=== PATIENT | female | born 1945 | race Hispanic/Latino ===

== ENCOUNTER 2021-04-03 16:29 | Emergency (ER) | payer OTHER, SELFPAY ==
[2021-04-03 16:35] VITALS: BP 112/61; PULSE 90; RESP 18; TEMP 37; O2SAT 99
--- NOTE | 2021-04-03 17:39 | DI.RAD.S_ITS ---
PROCEDURE: XR ELBOW LT MIN 3V INDICATIONS: fall onto left elbow w/ shoulder and elbow pain TECHNIQUE: 3 views of the elbow were acquired. COMPARISON: [facility], CR, XR SHOULDER LT MIN 2V, 04/03/2021, 17:40. FINDINGS: Bones: No fractures or dislocations. No suspicious bony lesions. Degenerative changes are seen, including a prominent olecranon enthesophyte. Soft tissues: No elbow joint effusion. No suspicious soft tissue calcifications. IMPRESSION: No displaced fractures are seen on these plain films. If there is focal tenderness, or other clinical concern for a fracture not seen on these images in this patient with a given history of trauma, please consider a dedicated CT or a short-term followup plain film series (in 1-2 weeks) for further evaluation. Dictated by: Eric Fischer M.D. on 04/03/2021 at 17:11 Approved by: Eric Fischer M.D. on 04/03/2021 at 17:12
--- NOTE | 2021-04-03 17:39 | DI.RAD.S_ITS ---
PROCEDURE: XR SHOULDER LT MIN 2V INDICATIONS: fall onto left elbow w/ shoulder and elbow pain TECHNIQUE: 3 views of the shoulder were acquired. COMPARISON: [facility], CR, XR ELBOW LT MIN 3V, 04/03/2021, 17:40. FINDINGS: Bones: No fractures or dislocations. No suspicious bony lesions. Visualized ribs appear intact. Degenerative changes are seen, including mild subacromial spurring. Soft tissues: No suspicious soft tissue calcifications. The visualized lung demonstrates an unremarkable appearance. IMPRESSION: Degenerative changes, without an acute abnormality identified. If there is point tenderness (or other clinical suspicion for a fracture not seen on these images) please consider a dedicated CT for further evaluation. Dictated by: Eric Fischer M.D. on 04/03/2021 at 17:10 Approved by: Eric Fischer M.D. on 04/03/2021 at 17:11
--- NOTE | 2021-04-03 21:27 | ED.UPPEXIN ---
HPI - Extremity Injury (Upper) General Chief Complaint: Extremity Injury, Upper Stated Complaint: FALL LEFT ELBOW INJURY Time Seen by Provider: 04/03/21 21:05 Source: patient Mode of arrival: Ambulatory Limitations: no limitations History of Present Illness HPI narrative: Patient is a 76-year-old female history of diabetes presenting with left shoulder and elbow pain after ground level fall. Something well using a walker and fell onto her elbow. She did not hit her head she tries very hard not to do that. She has no numbness tingling or weakness in her fingertips. complaint: injury to: left, shoulder and elbow Onset (ago): hour(s) Related Data Allergies Allergy/AdvReac Type Severity Reaction Status Date / Time No Known Drug Allergies Allergy Verified 04/03/21 16:40 Review of Systems Review of Systems Narrative: GENERAL: Denies chills,fever HEENT: Denies throat pain RESPIRATORY: Denies dyspnea, cough, wheezing CARDIOVASCULAR: Denies chest pain, palpitations GASTROINTESTINAL: Denies nausea, vomiting MUSCULOSKELETAL: See HPI SKIN: No rash, no laceration, no pruritus NEUROLOGIC: Denies weakness, dizziness, headache, numbness 8 point review of systems is negative except for those stated above and HPI Patient History Medical History (Updated 04/03/21 @ 21:34 by Autumn Cason DO) Diabetes Social History Smoking Status: Never smoker Smoking Status: Never smoker alcohol intake frequency: 0-2 drinks per day Substance Use Type: does not use Exam Initial Vital Signs Initial Vital Signs: Vital Signs Temperature 98.6 F 04/03/21 16:35 Pulse Rate 90 04/03/21 16:35 Respiratory Rate 18 04/03/21 16:35 Blood Pressure 112/61 04/03/21 16:35 Pulse Oximetry 99 04/03/21 16:35 GENERAL: Alert well-appearing 76-year-old female CARDIOVASCULAR: peripheral pulses in tact, cap refill <2 sec RESPIRATORY: No respiratory distress, speaks in full sentences without difficulty EXTREMITIES: Normal range of motion, no clubbing or edema. Neurovascularly intact Left shoulder tender no clavicle step-off elbow contusion able to flex and extend at elbow. No wrist deformity strong distal radial pulse intact NEUROLOGICAL: Cranial nerves II through XII grossly intact. Normal gait and speech. SKIN: Contusion noted left elbow no laceration Course Orders Ordered: ED Orders 04/03/21 17:39 XR elbow LT min 3V Stat XR shoulder LT min 2V Stat Vital Signs Vital signs: Vital Signs - 8 hr 04/03/21 16:35 Temperature 98.6 F Pulse Rate 90 Respiratory Rate 18 Blood Pressure 112/61 Pulse Oximetry 99 MDM - Extremity Injury (Upper) Imaging Data Extremity x-ray #1: Radiologist's Impression: PROCEDURE: XR ELBOW LT MIN 3V INDICATIONS: fall onto left elbow w/ shoulder and elbow pain TECHNIQUE: 3 views of the elbow were acquired. COMPARISON: [facility], XR SHOULDER LT MIN 2V, 04/03/2021, 17:40. FINDINGS: Bones: No fractures or dislocations. No suspicious bony lesions. Degenerative changes are seen, including a prominent olecranon enthesophyte. Soft tissues: No elbow joint effusion. No suspicious soft tissue calcifications. IMPRESSION: No displaced fractures are seen on these plain films. If there is focal tenderness, or other clinical concern for a fracture not seen on these images in this patient with a given history of trauma, please consider a dedicated CT or a short-term followup plain film series (in 1-2 weeks) for further evaluation. Dictated by: Eric Fischer M.D. on 04/03/2021 at 17:11 Extremity x-ray #2: Radiologist's Impression: PROCEDURE: XR SHOULDER LT MIN 2V INDICATIONS: fall onto left elbow w/ shoulder and elbow pain TECHNIQUE: 3 views of the shoulder were acquired. COMPARISON: [facility], XR ELBOW LT MIN 3V, 04/03/2021, 17:40. FINDINGS: Bones: No fractures or dislocations. No suspicious bony lesions. Visualized ribs appear intact. Degenerative changes are seen, including mild subacromial spurring. Soft tissues: No suspicious soft tissue calcifications. The visualized lung demonstrates an unremarkable appearance. IMPRESSION: Degenerative changes, without an acute abnormality identified. If there is point tenderness (or other clinical suspicion for a fracture not seen on these images) please consider a dedicated CT for further evaluation. Dictated by: Eric Fischer M.D. on 04/03/2021 at 17:10 Discharge Plan Departure Patient Disposition: Home Clinical Impression: Contusion of elbow, left Qualifiers: Encounter type: initial encounter Qualified Code(s): S50.02XA - Contusion of left elbow, initial encounter Instructions: Contusion Activity Restrictions/Additional Instructions: *You have been diagnosed with left elbow contusion *What to do: At this time elevate and ice 20-30 minutes at a time *Continue to take medications as directed Acetaminophen/Tylenol 650 mg every 4-6 hours if needed for [id number] pain *Follow up with your primary care provider in 2-3 days *Return to ER if you should have increasing pain, numbness tingling weakness redness or any new, worsening or concerning symptoms
== END 2021-04-03 21:39 | disposition home or self-care (01) ==
PROVIDERS: Emergency Provider Emergency Medicine
DX: S50.02XA Contusion of left elbow, initial encounter (principal); W19.XXXA Unspecified fall, initial encounter
CPT/HCPCS: 73030; 73080; 99281; 99283